=== PATIENT | male | born 1965 | race Caucasian/White ===

== ENCOUNTER 2022-11-11 10:27 | Day surgery (SDC) | payer OTHER ==
[2022-11-06 08:55] VITALS: BMI 30.4
[~2022-11-11 10:27] MED LIST: ALPRAZolam 0.25 MG TAB PO PRN; ALPRAZolam 0.5 MG TAB PO PRN; ASPIRIN 325 MG TAB PO STA; NITROGLYCERIN SL TABS 0.4 MG TAB SUBLINGUAL PRN; SODIUM CHLORIDE 0.9% 1,000 ML in EMPTY BAG 1 BAG IV SCH
[2022-11-11 10:47] VITALS: TEMP 98.3
[2022-11-11] MEDS ORDERED: SODIUM CHLORIDE 0.9% 1,000 ML IV ONE (11:09)
[2022-11-11] MEDS ORDERED: VERAPAMIL 2.5 MG/ML 2 ML AMP ONE (12:17)
[2022-11-11 12:21] LABS: African American GFR (CKD) >90 (>60 ml/min/1.73 sqM); Anion Gap 6 mmol/L; Blood Urea Nitrogen 13 mg/dL (9-20); Calcium 8.9 mg/dL (8.4-10.2); Carbon Dioxide 25 mmol/L (22-30); Chloride 106 mmol/L (98-107); Glucose 107 mg/dL (74-99); Non-African American GFR(CKD) >90 (>60 ml/min/1.73 sqM); Potassium 4.3 mmol/L (3.5-5.1); Sodium 137 mmol/L (137-145)
[2022-11-11] MEDS ORDERED: MIDAZOLAM 2 MG/2 ML VIAL IVP ONE (12:47)
[2022-11-11] MEDS ORDERED: LIDOCAINE 1% INJ 10MG/ML (5 ML VIAL-PF) SQ ONE (12:51)
[2022-11-11] MEDS ORDERED: VERAPAMIL SYRINGE (5 MG/10 ML) INTRAARTER ONE (12:52)
[2022-11-11] MEDS ORDERED: HEPARIN SODIUM 1,000 UN/ML (10ML VL) IV ONE (12:54)
[2022-11-11] MEDS ORDERED: IOPAMIDOL-370 100ML BTL INJ ONE (13:03)
[2022-11-11] MEDS ORDERED: RX INFO: IV CONTRAST WAS GIVEN 1 EACH MISC MISCELLANE PRN (13:04)
--- NOTE | 2022-11-11 13:09 | P.PCN ---
Date of Procedure: 11/11/22 Operative Findings: CARDIAC CATHETERIZATION PERFORMING PHYSICIAN: Agustin Fernández MD, RPVI PROCEDURE PERFORMED: 1. Selective right and left coronary angiogram 2. Left heart catheterization 3. Ultrasound-guided access of the right radial artery INDICATION: Chest discomfort and this 57-year-old gentleman who underwent myocardial perfusion imaging stress test came in to be abnormal showing inferior ischemia COMPLICATION: None APPROACH: Right radial artery LEVEL OF SEDATION: Moderate with a sedation length of 11 minutes PROCEDURE DESCRIPTION: After obtaining an informed consent, the patient was brought to cardiac director of cath lab. Local anesthesia was performed using lidocaine subcutaneously. The right radial artery was cannulated using Seldinger technique, the guidewire passed easily, following that we advanced a 5-Ugandan sheath dilator assembly, the wire and dilator were removed and sheath was flushed. Following that, 2 mg of verapamil along with 5000 unit heparin were given. Selective right and left coronary angiogram using a 6-Ugandan JR4 and JL 3.5 catheters. Following that we did left heart catheterization using 6-Ugandan pigtail catheter. The procedure was completed there was no complication. SELECTIVE CORONARY ANGIOGRAM: The right coronary artery: Large caliber vessel and a dominant vessel. The RCA has mild disease in the midportion. Distally bifurcates into PDA and PLV branches both appeared to be angiographically normal Left main: Is normal. Bifurcates into an LCx and LAD The left circumflex: Large caliber vessel nondominant vessel. It gives rises into OM1 and OM to both appeared to be angiographically normal The left anterior descending artery: Large caliber vessel. The LAD has mild disease only. It gives rise into a large diagonal branch which appeared to be angiographically normal HEMODYNAMICS: LVEDP was 11 mmHg was no significant gradient across aortic valve CONCLUSION: 1. Mild CAD 2. Normal left-sided filling pressure POSTPROCEDURE MANAGEMENT: Medical treatment
[2022-11-11] MEDS ORDERED: SODIUM CHLORIDE 0.9% 1,000 ML IV SCH (13:15)
[2022-11-11 16:16] VITALS: RESP 12
[2022-11-11 16:47] VITALS: BP 121/77
[2022-11-11 19:07] VITALS: PULSE 60
== END 2022-11-11 17:00 | disposition home or self-care (01) ==
LOC: CATHCVL 10:27
PROVIDERS: ATTEND Internal Medicine Interventional Cardiology
DX: I25.10 Atherosclerotic heart disease of native coronary artery without angina pectoris (principal); E78.5 Hyperlipidemia, unspecified; F17.210 Nicotine dependence, cigarettes, uncomplicated; Z82.49 Family history of ischemic heart disease and other diseases of the circulatory system; Z88.5 Allergy status to narcotic agent; Z79.899 Other long term (current) drug therapy
CPT/HCPCS: 93458; 76937; 80048; C1769; C1894; J2250; J2001; J1644; Q9967